=== PATIENT | female | born 1990 | race American Indian/Alaskan Native ===

== ENCOUNTER 2016-12-23 15:53 | Emergency (ER) | payer BC, OTHER ==
[2016-12-23 16:11] VITALS: BMI 26.9
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
[2016-12-23 19:00] VITALS: BP 139/64; PULSE 84; RESP 18; TEMP 99; O2SAT 98
--- NOTE | 2016-12-24 09:46 | RAD ---
PROCEDURE: Right Knee Radiographs. HISTORY: injury COMPARISON: Comparison radiographs right knee 10/29/2014 FINDINGS: BONES: Normal. No fracture. JOINTS: Normal. No osteoarthritis. JOINT EFFUSION: Small suprapatellar joint effusion. OTHER FINDINGS: None. IMPRESSION: No evidence of displaced fracture nor dislocation. Small suprapatellar joint. If symptoms/pain persists, consider followup MRI. .
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
== END 2016-12-23 19:17 | disposition home or self-care (01) ==
LOC: C.ER 15:53
DX: M54.16 Radiculopathy, lumbar region (principal); M25.561 Pain in right knee; V43.52XA Car driver injured in collision with other type car in traffic accident, initial encounter; Y92.410 Unspecified street and highway as the place of occurrence of the external cause

== ENCOUNTER 2017-09-30 23:21 | Emergency (ER) | payer BC, OTHER ==
[2017-09-30 23:21] VITALS: BMI 26.9
[2017-09-30 23:45] VITALS: BP 110/70; PULSE 70; RESP 14; TEMP 98; O2SAT 98
--- NOTE | 2017-10-01 00:50 | C.PDOC ---
History Of Present Illness Pt presents to ER with c/o of atraumatic pain to left knee radiating to LLE x 3 days . Denies recent prolonged travel, OCP, recent immobitiy state. Time Seen by Provider: 09/30/17 23:52 Chief Complaint (Nursing): Lower Extremity Problem/Injury History Per: Patient History/Exam Limitations: no limitations Onset/Duration Of Symptoms: Gradual (3 dys) Current Symptoms Are (Timing): Still Present Severity: Moderate Pain Scale Rating Of: 6 Past Medical History Vital Signs: Last Vital Signs Temp 98 F 09/30/17 23:42 Pulse 70 09/30/17 23:42 Resp 14 09/30/17 23:42 BP 110/70 09/30/17 23:42 Pulse Ox 98 10/01/17 00:51 - Medical History PMH: No Chronic Diseases Family History: States: Unknown Family Hx - Social History Hx Tobacco Use: No Hx Alcohol Use: No Hx Substance Use: No - Immunization History Hx Influenza Vaccination: No Hx Pneumococcal Vaccination: No Review Of Systems Constitutional: Negative for: Fever Musculoskeletal: Positive for: Leg Pain (left ), Other (left knee pin) Neurological: Negative for: Weakness, Numbness Physical Exam - Physical Exam Appears: Well, Non-toxic Skin: Normal Color Head: Atraumatic Eye(s): bilateral: Normal Inspection Extremity: Normal ROM, Tenderness (miniaml to suprapatellar area and popliteal area of left knee. atraumatic ) Extremity: Bilateral: Atraumatic, Normal Color And Temperature Pulses: Left Dorsalis Pedis: Normal, Right Dorsalis Pedis: Normal Neurological/Psych: Oriented x3, Normal Motor, Normal Sensation Gait: Steady ED Course And Treatment O2 Sat by Pulse Oximetry: 98 Pulse Ox Interpretation: Normal Progress Note: Knee brace applied for support amd advised NSAIDS and follow up Disposition Counseled Patient/Family Regarding: Diagnosis, Need For Followup, Rx Given - Disposition Referrals: [facility] [Outside] Disposition: HOME/ ROUTINE Disposition Time: 00:49 Condition: STABLE Additional Instructions: Please follow up with PMD Apply knee brace for support Elevate leg Return to ER if worse Prescriptions: Ibuprofen [Motrin] 600 mg PO Q6H #20 tab Instructions: Knee Pain (DC) Forms: [employer] (Macedonian) - Clinical Impression Clinical Impression: Arthralgia
== END 2017-10-01 00:52 | disposition home or self-care (01) ==
LOC: C.ER 23:21
DX: M25.562 Pain in left knee (principal)

== ENCOUNTER 2017-10-19 22:45 | Emergency (ER) | payer BC ==
[2017-10-19 22:45] VITALS: BMI 26.9
[2017-10-19 23:01] VITALS: BP 130/79; PULSE 92; RESP 18; TEMP 99; O2SAT 100
--- NOTE | 2017-10-20 00:24 | C.PDOC ---
History Of Present Illness 27 year old female with a PMHx of breast cyst, surgically resolved in past, presents to the ER with a complaint of moderate to severe pain over the left breast for the past 2 days. Patient states the pain has been "unbearable" which prompted visit. She has not taken anything at home for the pain. Denies trauma, fever, rash, nipple discharge, breast feeding, chest pain, or SOB. Time Seen by Provider: 10/19/17 23:03 Chief Complaint (Nursing): Breast Problem History Per: Patient History/Exam Limitations: no limitations Onset/Duration Of Symptoms: Days Current Symptoms Are (Timing): Still Present Recent travel outside of the [place]: No Past Medical History Reviewed: Historical Data, Nursing Documentation, Vital Signs Vital Signs: Last Vital Signs Temp 99.0 F 10/19/17 22:58 Pulse 92 H 10/19/17 22:58 Resp 18 10/19/17 22:58 BP 130/79 10/19/17 22:58 Pulse Ox 100 10/20/17 01:03 Family History: States: Unknown Family Hx - Social History Hx Tobacco Use: No Hx Alcohol Use: No Hx Substance Use: No - Immunization History Hx Tetanus Toxoid Vaccination: No Hx Influenza Vaccination: No Hx Pneumococcal Vaccination: No Review Of Systems Constitutional: Negative for: Fever, Chills Cardiovascular: Negative for: Chest Pain Respiratory: Negative for: Shortness of Breath Musculoskeletal: Positive for: Other (Left breast pain) Skin: Negative for: Rash Physical Exam - Physical Exam Appears: Non-toxic Skin: Normal Color, Warm, Dry, No Rash Head: Atraumatic, Normacephalic Eye(s): bilateral: Normal Inspection Oral Mucosa: Moist Neck: Normal, Supple Chest: Other (Two cysts at 6'o clock and 7'o clock position. No erythema, nipple drainage, nipple inversion, rash, or warmth.) Cardiovascular: Rhythm Regular Respiratory: Normal Breath Sounds, No Rales, No Rhonchi, No Wheezing Gastrointestinal/Abdominal: Soft, No Tenderness Neurological/Psych: Oriented x3, Normal Speech ED Course And Treatment O2 Sat by Pulse Oximetry: 100 (Room air) Pulse Ox Interpretation: Normal Medical Decision Making Medical Decision Making: Physical exam is consistent with cysts, patient informed to follow up with previous breast surgeon. Patient also notes she used to take control to control cysts, advised to follow up with [facility]. Disposition - Disposition Referrals: [facility] [Outside] Disposition: HOME/ ROUTINE Disposition Time: 00:18 Condition: STABLE Additional Instructions: Follow up with our Breast Surgeon and OBGYN within 3-5 days. Return if worsened. Prescriptions: Naproxen [Naprosyn] 500 mg PO BID #20 tab Instructions: Breast Care for the Non-breast Feeding Woman (ED) Forms: [employer] (Scottish), Work Excuse - Clinical Impression Clinical Impression: Breast cyst - Scribe Statement The provider has reviewed the documentation as recorded by the Scribанна Ordoñez All medical record entries made by the Efrainibe were at my direction and personally dictated by me. I have reviewed the chart and agree that the record accurately reflects my personal performance of the history, physical exam, medical decision making, and the department course for this patient. I have also personally directed, reviewed, and agree with the discharge instructions and disposition.
== END 2017-10-20 00:24 | disposition home or self-care (01) ==
LOC: C.ER 22:45
DX: N60.02 Solitary cyst of left breast (principal)
CPT/HCPCS: 96372; 99284; J1885

== ENCOUNTER 2018-03-30 21:27 | Emergency (ER) | payer BC ==
[2018-03-30 21:28] VITALS: BMI 26.9
--- NOTE | 2018-03-30 21:43 | C.PDOC ---
History Of Present Illness 27 year old female w/ hx of asthma presents to the emergency department with complaints of chest pain and shortness of breath since Saturday03-25-18. Patient was evaluated on saturday03-26-18 by outpatient [facility], diagnosed with asthma and was prescribed an inhaler and steroids. She notes that she picked up the steroids and the inhaler today. Today, she states that she tried using her inhaler pump once for shortness of breath and continued having mild shortness of breath. She notes that she has not taken any of the steroid medication she was prescribed. No previous intubations or admissions for asthma. She notes that her chest pain is more like a tightness, that she normal gets with her asthma, that does not radiate into her neck, back or arm. She denies any PEÑA, pleuritic chest pain or hemoptysis. No leg swelling. She denies fever, chills, nausea, vomiting, diarrhea, and abdominal pain. Time Seen by Provider: 03/30/18 21:42 Chief Complaint (Nursing): Shortness Of Breath History Per: Patient History/Exam Limitations: no limitations Onset/Duration Of Symptoms: Days (5) Current Symptoms Are (Timing): Still Present Quality: "Pain" Current Respiratory Medications: Other (inhaler) Associated Symptoms: Chest Pain, Other (shortness of breath). denies: Fever, Chills Past Medical History Vital Signs: Last Vital Signs Temp 98.3 F 03/30/18 21:33 Pulse 93 H 03/30/18 21:33 Resp 20 03/30/18 21:33 BP 142/83 03/30/18 21:33 Pulse Ox 93 L 03/30/18 21:33 - Medical History PMH: Asthma Denies: Chronic Kidney Disease Surgical History: No Surg Hx Family History: States: Unknown Family Hx - Social History Hx Tobacco Use: No Hx Alcohol Use: No Hx Substance Use: No - Immunization History Hx Tetanus Toxoid Vaccination: No Hx Influenza Vaccination: No Hx Pneumococcal Vaccination: No Review Of Systems Except As Marked, All Systems Reviewed And Found Negative. Constitutional: Negative for: Fever, Chills, Weakness, Malaise Eyes: Negative for: Pain, Eyelid Inflammation ENT: Negative for: Ear Pain, Ear Discharge, Nose Pain, Nose Congestion, Mouth Pain, Mouth Swelling Cardiovascular: Positive for: Chest Pain Respiratory: Positive for: Cough, Shortness of Breath. Negative for: SOB with Excertion, Pleuritic Pain Gastrointestinal: Negative for: Nausea, Vomiting, Abdominal Pain, Diarrhea, Hematochezia, Hematemesis Genitourinary: Negative for: Dysuria, Frequency, Incontinence, Hematuria, Vaginal Discharge, Vaginal Bleeding Musculoskeletal: Positive for: Back Pain. Negative for: Neck Pain Skin: Negative for: Rash Neurological: Negative for: Weakness, Headache Psych: Negative for: Anxiety Physical Exam - Physical Exam Appears: Well, Non-toxic, No Acute Distress Skin: Warm, Dry Head: Atraumatic, Normacephalic Eye(s): bilateral: Normal Inspection, PERRL, EOMI Throat: Normal, No Erythema Neck: Normal, Supple, Other (no meningeal signs) Chest: Symmetrical, No Tenderness Cardiovascular: Rhythm Regular, No Murmur Respiratory: No Rales, No Rhonchi, Wheezing (mild wheezes at bases) Gastrointestinal/Abdominal: Soft, No Tenderness, No Guarding, No Rebound Back: Normal Inspection, No CVA Tenderness Neurological/Psych: Oriented x3, Normal Speech, Normal Cognition, No Cerebellar Signs ED Course And Treatment O2 Sat by Pulse Oximetry: 93 Medical Decision Making Medical Decision Makin yr old female w/ hx of asthma p/w asthma exacerbation. Pt speaking in full sentences, without respiratory distress. Mild wheezes at the bases. Pt ambulates w/ out difficulty. Was previously given outpt meds for asthma management but has not been taking steroids. Given well appearance, will rx with duoneb and give steroids and reassess. Chest pain non pleurtic, in line w/ previous asthma exacerbations. Pt denies any drug use. Plan: CXR Albuterol 3ml INH Prednisone 50mg PO POC Urine 1131 Lungs CTA b/l. Wheezes resolved. No Current CP pt in NAD. Pulse ox bedside 100%. likely asthma / bronchitis. Pt has meds already for asthma: will give z pack for bronchitis will have pt f.u pt agreeable Disposition - Disposition Referrals: [facility] [Outside] [facility] [Outside] Colby Alas MD [Staff Provider] - Disposition: HOME/ ROUTINE Disposition Time: 23:34 Condition: GOOD Additional Instructions: CHRISTIAN RAO, thank you for letting us take care of you today. Your provider was Oscar Cruz and you were treated for CHEST PAIN. The emergency medical care you received today was directed at your acute symptoms. If you were prescribed any medication, please fill it and take as directed. It may take several days for your symptoms to resolve. Return to the Emergency Department if your symptoms worsen, do not improve, or if you have any other problems. Please contact your doctor or call one of the physicians/clinics you have been referred to that are listed on the Patient Visit Information form that is included in your discharge packet. Bring any paperwork you were given at discharge with you along with any medications you are taking to your follow up visit. Our treatment cannot replace ongoing medical care by a primary care provider outside of the emergency department. Thank you for allowing the [facility] team to be part of your care today. If you had an X-Ray or CT scan: A Radiologist will review the ED reading if any change in treatment is needed we will contact you. If you had a blood, urine, or wound culture: It will take several days for the results, if any change in treatment is needed we will contact you. If you had an STI test: It will take 48 hours for the results. Please call after 1 week if you have not heard back. Prescriptions: RX: Azithromycin [Z-Bruce] 250 mg PO DAILY #6 tab Instructions: Asthma, Adult (DC), Acute Bronchitis Forms: [employer] (Bhutanese) - Clinical Impression Clinical Impression: Asthma, Bronchitis - Scribe Statement The provider has reviewed the documentation as recorded by the Scribe (Danyel Cabrera) Provider Attestation: All medical record entries made by the Scribe were at my direction and personally dictated by me. I have reviewed the chart and agree that the record accurately reflects my personal performance of the history, physical exam, medical decision making, and the department course for this patient. I have also personally directed, reviewed, and agree with the discharge instructions and disposition.
[2018-03-30] MEDS ORDERED: Albuterol-Ipratrop 3 mg / 0.5 (3 ml) UD INH STA (21:56)
[2018-03-30] MEDS ORDERED: Albuterol-Ipratrop 3 mg / 0.5 (3 ml) UD ONE (22:21)
[2018-03-30 23:32] VITALS: BP 123/73; PULSE 82; RESP 20; TEMP 97.6
[2018-03-30 23:34] VITALS: O2SAT 93
--- NOTE | 2018-03-31 09:26 | RAD ---
Chest x-ray two views History: Shortness of breath. Comparison: 07/24/2013 Findings: Mild venous congestion. Bibasilar breast and nipple shadows. Heart size within normal limits. Impression: Mild venous congestion.
== END 2018-03-30 23:41 | disposition home or self-care (01) ==
LOC: C.ER 21:27
DX: J45.909 Unspecified asthma, uncomplicated (principal)

== ENCOUNTER 2018-08-13 15:12 | Outpatient (CLI) | payer BC | END 2018-08-13 15:13 | disposition home or self-care (01) | LOC: C.MRIC 15:13 ==

== ENCOUNTER 2018-09-12 23:30 | Emergency (ER) | payer BC | END 2018-09-13 00:28 | disposition home or self-care (01) | LOC: C.ER 23:30 ==